=== PATIENT | female | born 1975 | race Caucasian/White ===

== ENCOUNTER → 2020-04-29 14:39 | Outpatient (CLI) | payer OTHER, MEDICAID, SELFPAY ==
--- NOTE | 2020-04-29 14:42 | DI.CT.S_ITS ---
PROCEDURE: CT SINUS SCREEN WO CON INDICATIONS: Chronic pansinusitis TECHNIQUE: Noncontrast 3.0 mm axial images acquired from the frontal sinuses to the mid-sella, with coronal and sagittal reformats. For radiation dose reduction, the following was used: automated exposure control, adjustment of mA and/or kV according to patient size. COMPARISON: None. FINDINGS: Image quality: There is artifact associated with the metallic hardware. Artifact from the metallic hardware is reduced by metal reconstruction algorithm. Maxillary Sinuses: No bony remodeling or destruction. Sinuses are clear. Ethmoid Air Cells: No bony remodeling or destruction. Sinuses are clear. Sphenoid Sinuses: No bony remodeling or destruction. Sinuses are clear. Frontal Sinuses: No bony remodeling or destruction. Sinuses are clear. Ostiomeatal Complexes: Ostiomeatal complexes are patent. No Doug cells. Miscellaneous: Visualized intra-orbital contents are normal. Bilateral stuart bullosa can be seen. There is mild leftward nasal septal deviation seen. IMPRESSION: No significant active paranasal sinus disease is seen. Bilateral stuart bullosa, with mild leftward nasal septal deviation noted. Dictated by: Roman Turcios M.D. on 04/29/2020 at 15:01 Approved by: Roman Turcios M.D. on 04/29/2020 at 15:03
== END ==
PROVIDERS: Family Provider Family Medicine; PCP Family Medicine; Referring Provider Family Medicine; Visit Provider Otolaryngology
DX: J32.4 Chronic pansinusitis (principal); R51.9 Headache, unspecified; J34.2 Deviated nasal septum; J34.3 Hypertrophy of nasal turbinates
CPT/HCPCS: 70486

== ENCOUNTER → 2020-08-26 11:32 | Outpatient (CLI) | payer OTHER, MEDICAID, SELFPAY ==
--- NOTE | 2020-08-26 11:35 | DI.RAD.S_ITS ---
PROCEDURE: XR ACUTE ABDOMEN SERIES INDICATIONS: ABD PAIN TECHNIQUE: One view chest and two views of the abdomen were acquired. COMPARISON: None. FINDINGS: Surgical changes and devices: None. Chest: Lungs are clear. Heart size is normal. No pleural effusions. No pneumoperitoneum. Abdomen: Bowel gas pattern is normal. No suspicious calcifications. Visualized solid organ contours appear normal. Bones: No suspicious bony lesions. IMPRESSION: 1. No evidence of bowel obstruction. No gross free air. No abnormal renal calcifications. 2. No acute cardiopulmonary pathology. Dictated by: Vaibhav Santana M.D. on 08/26/2020 at 13:05 Approved by: Vaibhav Santana M.D. on 08/26/2020 at 13:06
== END ==
PROVIDERS: Family Provider Family Medicine; PCP Family Medicine; Referring Provider Family Medicine; Visit Provider Family Medicine
DX: R10.9 Unspecified abdominal pain (principal)
CPT/HCPCS: 74022

== ENCOUNTER → 2021-04-08 09:14 | Outpatient (CLI) | payer OTHER, MEDICAID, SELFPAY ==
--- NOTE | 2021-04-08 | DI.RAD.S_ITS ---
PROCEDURE: XR HIP W PEL IF DONE RT 2V INDICATIONS: RIGHT HIP/ LOW BACK PAIN TECHNIQUE: AP pelvis with lateral view(s) of the right hip(s). COMPARISON: None. FINDINGS: Bones: No fractures or dislocations. Pelvic ring appears intact. No suspicious bony lesions. Mild bilateral hip osseous hypertrophy compatible with osteoarthritis.. Soft tissues: The visualized bowel gas pattern is normal. No suspicious soft tissue calcifications. IMPRESSION: Mild bilateral hip osteoarthritis. Dictated by: Erika Carmona MD, PhD on 04/08/2021 at 9:48 Approved by: Erika Carmona MD, PhD on 04/08/2021 at 9:48
--- NOTE | 2021-04-08 | DI.RAD.S_ITS ---
PROCEDURE: XR LUMBAR SPINE 2-3V INDICATIONS: RIGHT HIP/ LOW BACK PAIN TECHNIQUE: 3 views of the lumbar spine were acquired. COMPARISON: None. FINDINGS: Bones: 5 leg-yxr-jrtzftt vertebrae are present. No traumatic subluxation. No vertebral body compression fractures. No suspicious bony lesions. The sacroiliac joints are patent. Soft tissues: Overlying bowel gas pattern is normal. No suspicious soft tissue calcifications. IMPRESSION: No acute osseous abnormality. Dictated by: Subhash Perez M.D. on 04/08/2021 at 9:30 Approved by: Subhash Perez M.D. on 04/08/2021 at 9:31
== END ==
PROVIDERS: Family Provider Family Medicine; PCP Family Medicine; Referring Provider Family Medicine; Visit Provider Family Medicine
DX: M25.551 Pain in right hip (principal); M54.50 Low back pain, unspecified
CPT/HCPCS: 72100; 73502

== ENCOUNTER → 2022-12-31 17:45 | Outpatient (CLI) | payer OTHER, MEDICAID, SELFPAY | PROVIDERS: Family Provider Family Medicine; PCP Family Medicine; Visit Provider Physician Assistant | DX: J02.9 Acute pharyngitis, unspecified (principal) | CPT/HCPCS: 87070; 87880 ==

== ENCOUNTER 2023-01-12 14:15 | Outpatient (RCR) | payer OTHER, MEDICAID, SELFPAY ==
--- NOTE | 2022-12-08 18:16 | PT.OIE ---
Current Diagnoses Cervicalgia (12/08/22) Visit Care Team Role Provider Type Santos Chapin MD Attending Provider Physician Family Provider Primary Care Provider Referring Provider Specialty: Family Practice Address: [address] [place] [address], [facility], [place], [place], [facility] Email: [email or web address] Physical Therapy Initial Evaluation PT-OP-A Visit Information Start: 12/04/22 18:45 Freq: Status: Active Protocol: Document 12/08/22 11:21 LRN (Rec: 12/08/22 12:13 LRN [id number]) Out-Patient Physical Therapy Visit Information Visit Information Visit Type Initial Evaluation Visit Start Time 11:21 Visit Stop Time 12:08 Total Visit Minutes 47 Visit Number 07/14 Evaluation Information Evaluation Date 12/08/22 Precautions Precautions Jaw pain from clenching even with flare maker, dull tension headaches when body is hurting, upper back pain from neck. PT-OP-B Current Condition Start: 12/04/22 18:45 Freq: Status: Active Protocol: Document 12/08/22 11:21 LRN (Rec: 12/08/22 12:13 LRN [id number]) Current Condition History of Current Condition Onset Date 1.5 months ago. Current Complaints Pelon neck pain, can't rot or extend neck w/o sudden sharp pain,constant ache History of Current Condition Woke one day with neck pain that is variable in intensity. In mornings on day off it hurts more. Using gel ice pack helps. Was also better with ms relaxors and anti- inflammatories. Has achy muscles and sharp pain with rot and ext. 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 Prior Treatments and Tests Anti-inflammatories, muscle relaxors. Treatment Goals Patient/Caregiver Goals Pt goal: alleviate the sharp neck pain, to be able to turn neck all the way to drive. be able to play with grandkids , be able to get comfortable at nighttime, and no pain in morning except for achy neck muscles (currently wakes with pain rated 1-7/10). 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 Watches [employer] 2:30-5 :30 or 6p. Baseline Function- Other No back pain. Lives with 11 yo son and takes care of grandkids (ages 5,6,7, 2-boys and 1 girl) 2x/week. 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 PT-OP-C Subjective Start: 12/04/22 18:45 Freq: Status: Active Protocol: Document 12/08/22 11:21 LRN (Rec: 12/08/22 12:13 LRN [id number]) OP-PT Subjective Patient Comments Patient Comments If neck ms get tight, then can cause tingling in L shoulder. Patient Questionnaires Neck Disability Index NDI Score 14 Neck Disability Index Impairment 20 to 39% Impaired (Score 10- 19) Quick Dash- Upper Extremity Quick Dash UE Score 18 Quick Dash UE Impairment 1 to 19% Impaired (Score 1-19) OP-PT Pain Assessment Pain Assessment Grid Paper Pain Assessment Grid Completed Yes Location Neck Pain Location Details Posterior neck Intensity 7 Scale Used Numeric (0 - 10) Description Aching Description- Other Sharp pains with turning or looking up Frequency Constant Pain Aggravating Factors Changing Position Pain Alleviating Factors Cold,Heat,Medication Other Pain Alleviating Factors Gel ice packs PT-OP-H Neuro Start: 12/04/22 18:45 Freq: Status: Active Protocol: Document 12/08/22 11:21 LRN (Rec: 12/08/22 12:13 LRN [id number]) Sensation Evaluation Gross Sensation Gross Sensation WNL Deep Tendon Reflex & Clonus Assessment Deep Tendon Reflex Right Tricep Deep Tendon Reflex 1+ Diminished Left Tricep Deep Tendon Reflex 2+ Normal Right Bicep Deep Tendon Reflex 1+ Diminished Left Bicep Deep Tendon Reflex 2+ Normal Bilateral Brachioradialis Deep Tendon Reflex 2+ Normal PT-OP-J Posture/Palpation/Skin Start: 12/04/22 18:45 Freq: Status: Active Protocol: Document 12/08/22 11:21 LRN (Rec: 12/08/22 12:13 LRN [id number]) Posture Evaluation Position Standing Head/C-Spine Posture Side Bent Left,C-Spine Flattened,Forward Head L-Spine Posture Increased Lordosis Shoulder Posture (L) Elevated Arm Posture (L) Internally Rotated,(R) Internally Rotated Pelvis Posture Anteriorly Tilted Ankle/Foot Posture (L) Pronated,(R) Pronated Comments Posture Comments Straightened upper T/S, dowagers hump Palpation Assessment Location C/S Palpation Location C/S Palpation Findings Tenderness Palpation Details Decreased PA of C/S. Posterior neck Palpation Location L Paraspinals & UT Palpation Findings Soft Tissue Tightness,Muscle Guarding,Tenderness PT-OP-K Range of Motion Start: 12/04/22 18:45 Freq: Status: Active Protocol: Document 12/08/22 11:21 LRN (Rec: 12/08/22 12:13 LRN [id number]) Cervical Spine Range of Motion Cervical Spine Active Degrees Testing Position Sitting Flexion 38 Extension 24 Rotation Left 30 Rotation Right 42 Lateral Flexion Left 23 Lateral Flexion Right 23 ROM Limitations Pain Comments Pain at base of skull PT-OP-L Special Tests Start: 12/04/22 18:45 Freq: Status: Active Protocol: Document 12/08/22 11:21 LRN (Rec: 12/08/22 12:13 LRN [id number]) Special Tests Cervical Spine Special Tests Vertebral Artery Test Results - R rot, not able to tolerate positioning for testing of L side. Spurling's Test Test Results + Comments L sided neck pain Traction Test Results + Comments Relieved tension Foraminal Compression Test Results + Comments Increased pain at base of head PT-OP-M Strength Start: 12/04/22 18:45 Freq: Status: Active Protocol: Document 12/08/22 11:21 LRN (Rec: 12/08/22 12:13 LRN [id number]) Cervical Spine Strength Cervical Spine Manual Muscle Testing Testing Position Sitting Flexion (C1-2) 4 Good Extension 5 Normal Rotation Left 5 Normal Rotation Right 5 Normal Lateral Flexion Left (C3) 3+ Fair+ Lateral Flexion Right (C3) 5 Normal Comments Pain with Flex and L SB Dec pain with Ext PT-OP-Q Treatments Start: 12/04/22 18:45 Freq: Status: Active Protocol: Document 12/08/22 11:21 LRN (Rec: 12/08/22 12:13 LRN [id number]) Self-Care/Home Management Treatment Education Patient Education Home Exercise Program Other Education Discussed results of evaluation, goals, and plan of care (POC). Pt agreeable to goals and POC. Educated and discussed proper head positioning for sleeping. Activities Self-Care/Home Management Activities I/S pt in HEP: Supine or sitting active neck ext ( sitting hands behind neck), SB and rot stretch. Pt to check her pillow support and make so head is in neutral. Requested pt to try limiting lifting while at work as able. PT-OP-T Assessment and Plan Start: 12/04/22 18:45 Freq: Status: Active Protocol: Document 12/08/22 11:21 LRN (Rec: 12/08/22 12:13 LRN [id number]) Physical Therapy Assessment Rehab Potential Rehabilitation Potential Good Evaluation Complexity Number of Personal Factors/Comorbidities 3 or More Number of Body Systems Impaired 4 or More Clinical Presentation at Evaluation Evolving Impairments Impairments Activity Tolerance,Pain, Posture,ROM,Soft Tissue Mobility,Strength Goals Two Impairment Neck pain limiting function Impairment Decrease driving and sleeping ability. Pain first in morning (pain rated 1-7/10). NDI score 14/50 (20-39% impaired, score 10-19), UE Quickdash 18 (1-19% impaired, score 1-19). Short Term Goal (STG) Alleviate the sharp neck pain, to drive to turn neck all the way. STG Duration 01/17/23 Sustainability Coordinator Goal (LTG) Be able to get comfortable at nighttime, no pain first in morning except for achy neck muscles (wakes with pain rated 1-7/10). Be able to play with grandkids. LTG Duration 03/08/23 One Impairment Lacks HEP Short Term Goal (STG) Pt will be educated in proper posture, nighttime positioning and body mechanics. STG Duration 01/17/23 Sustainability Coordinator Goal (LTG) Pt will be independent in a self prison ex program of cervical mobility and strengthening exercises. LTG Duration 03/08/23 Assessment Summary Assessment Pt is a 47 yo female who presents with soft tissue and mechanical dysfunction of the cervical spine. Her neck appears to be straightened and she has soft tissue tightness of the bilateral cervical paraspinal muscles (L>R) and in the L upper shoulder. The pt also demonstrates postural changes of the upper back/low back with decreased cervical mobility and probably thoracic mobility. She appears to have decreased response to biceps DTR (C5-C6). Provocation tests indicate possible neural involvement that may be more associated to joint dysfunction. Ongoing assessment will be needed as her soft tissue dysfunction is resolved and joint mechanics improved to determine neural invovlement. The pt will benefit from skilled physical therapy to work towards achieving the above stated goals. Physical Therapy Plan Frequency and Duration Frequency of Treatment 2x/Week Plan of Care Start Date 12/08/22 Plan of Care End Date 03/08/23 Therapeutic Interventions Therapeutic Interventions Home Exercise Program,Joint Mobilizations,Manual Therapy, Neuromuscular Re-education, Patient/Caregiver Education, Self-Care/Home Management,Soft Tissue Mobilization,Taping, Therapeutic Activities, Therapeutic Exercises Modalities Cold Pack/Ice Massage,Electric Stimulation,Hot Packs, Traction- Mechanical, Ultrasound Next Visit Focus/Plan Next Note Type Treatment Note Next Visit Plan Review I/S HEP. Assess Upper limb tension and assess shoulder mobility for pain involvement. POC: Modalities (MH, CP, ESTIM, US) and manual therapy (Traction, JMT, STM) to decrease ms guarding. Ther Ex: Improve cervical extension, and rotation (L>R) ROM. Ther Ex: Cervical stab strengthening, posture. Pt education in best sleeping positions and body mechanics training for proper head/neck posturing. Discuss daily head positioning to avoid flexion.
--- NOTE | 2022-12-08 18:16 | PT.OPPOC ---
Physical, Occupational & Speech Therapy At [facility] Current Diagnoses Cervicalgia (12/08/22) Visit Care Team Role Provider Type Santos Chapin MD Attending Provider Physician Family Provider Primary Care Provider Referring Provider Specialty: Family Practice Address: [address] [place] [address], [id number] Email: [email or web address] Plan Of Care PT-OP-T Assessment and Plan Start: 12/04/22 18:45 Freq: Status: Active Protocol: Document 12/08/22 11:21 LRN (Rec: 12/08/22 12:13 LRN [id number]) Physical Therapy Assessment Rehab Potential Rehabilitation Potential Good Evaluation Complexity Number of Personal Factors/Comorbidities 3 or More Number of Body Systems Impaired 4 or More Clinical Presentation at Evaluation Evolving Impairments Impairments Activity Tolerance,Pain, Posture,ROM,Soft Tissue Mobility,Strength Goals Two Impairment Neck pain limiting function Impairment Decrease driving and sleeping ability. Pain first in morning (pain rated 1-7/10). NDI score 14/50 (20-39% impaired, score 10-19), UE Quickdash 18 (1-19% impaired, score 1-19). Short Term Goal (STG) Alleviate the sharp neck pain, to drive to turn neck all the way. STG Duration 01/17/23 Spring Maker Goal (LTG) Be able to get comfortable at nighttime, no pain first in morning except for achy neck muscles (wakes with pain rated 1-7/10). Be able to play with grandkids. LTG Duration 03/08/23 One Impairment Lacks HEP Short Term Goal (STG) Pt will be educated in proper posture, nighttime positioning and body mechanics. STG Duration 01/17/23 [facility] Goal (LTG) Pt will be independent in a self fdc ex program of cervical mobility and strengthening exercises. LTG Duration 03/08/23 Assessment Summary Assessment Pt is a 47 yo female who presents with soft tissue and mechanical dysfunction of the cervical spine. Her neck appears to be straightened and she has soft tissue tightness of the bilateral cervical paraspinal muscles (L>R) and in the L upper shoulder. The pt also demonstrates postural changes of the upper back/low back with decreased cervical mobility and probably thoracic mobility. She appears to have decreased response to biceps DTR (C5-C6). Provocation tests indicate possible neural involvement that may be more associated to joint dysfunction. Ongoing assessment will be needed as her soft tissue dysfunction is resolved and joint mechanics improved to determine neural invovlement. The pt will benefit from skilled physical therapy to work towards achieving the above stated goals. Physical Therapy Plan Frequency and Duration Frequency of Treatment 2x/Week Plan of Care Start Date 12/08/22 Plan of Care End Date 03/08/23 Therapeutic Interventions Therapeutic Interventions Home Exercise Program,Joint Mobilizations,Manual Therapy, Neuromuscular Re-education, Patient/Caregiver Education, Self-Care/Home Management,Soft Tissue Mobilization,Taping, Therapeutic Activities, Therapeutic Exercises Modalities Cold Pack/Ice Massage,Electric Stimulation,Hot Packs, Traction- Mechanical, Ultrasound Next Visit Focus/Plan Next Note Type Treatment Note Next Visit Plan Review I/S HEP. Assess Upper limb tension and assess shoulder mobility for pain involvement. POC: Modalities (MH, CP, ESTIM, US) and manual therapy (Traction, JMT, STM) to decrease ms guarding. Ther Ex: Improve cervical extension, and rotation (L>R) ROM. Ther Ex: Cervical stab strengthening, posture. Pt education in best sleeping positions and body mechanics training for proper head/neck posturing. Discuss daily head positioning to avoid flexion. Plan of Care Dates Plan of Care Start Date 12/08/22 Plan of Care End Date 03/08/23 Electronically Signed by: Sisi Meyers, PT 12/08/22 [id number] If you are in agreement with this Plan of Care, please return a signed and dated copy. I have reviewed this Plan of Care and certify that the skilled therapy services above are required to meet the patient?s needs. Physician Signature Date Printed Name and Credentials Clinical Instructor Signature Printed Name and Credentials
--- NOTE | 2022-12-11 08:44 | PT.OTN ---
Current Diagnoses Cervicalgia (12/11/22) Physical Therapy Treatment Note PT-OP-A Visit Information Start: 12/04/22 18:45 Freq: Status: Active Protocol: Document 12/11/22 08:03 LRN (Rec: 12/11/22 08:41 LRN [id number]) Out-Patient Physical Therapy Visit Information Visit Information Visit Type Treatment Note Visit Start Time 08:03 Visit Stop Time 08:44 Total Visit Minutes 41 Visit Number 2 Evaluation Information Evaluation Date 12/08/22 Precautions Precautions Jaw pain from clenching even with night monitor, dull tension headaches when body is hurting, upper back pain from neck. PT-OP-B Current Condition Start: 12/04/22 18:45 Freq: Status: Active Protocol: Document 12/08/22 11:21 LRN (Rec: 12/08/22 12:13 LRN [id number]) Current Condition History of Current Condition Onset Date 1.5 months ago. Current Complaints Pelon neck pain, can't rot or extend neck w/o sudden sharp pain,constant ache History of Current Condition Woke one day with neck pain that is variable in intensity. In mornings on day off it hurts more. Using gel ice pack helps. Was also better with ms relaxors and anti- inflammatories. Has achy muscles and sharp pain with rot and ext. 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 Prior Treatments and Tests Anti-inflammatories, muscle relaxors. Treatment Goals Patient/Caregiver Goals Pt goal: alleviate the sharp neck pain, to be able to turn neck all the way to drive. be able to play with grandkids , be able to get comfortable at nighttime, and no pain in morning except for achy neck muscles (currently wakes with pain rated 1-7/10). 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 Watches [employer] 2:30-5 :30 or 6p. Baseline Function- Other No back pain. Lives with 11 yo son and takes care of grandkids (ages 5,6,7, 2-boys and 1 girl) 2x/week. 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 PT-OP-C Subjective Start: 12/04/22 18:45 Freq: Status: Active Protocol: Document 12/11/22 08:03 LRN (Rec: 12/11/22 08:41 LRN [id number]) OP-PT Subjective Patient Comments Patient Comments Same. L side hurts more today. Pain on L side is 3/10 . Tends to alternate in the muscle that is painful. Has been sleeping with only one pillow. PT-OP-H Neuro Start: 12/04/22 18:45 Freq: Status: Active Protocol: Document 12/08/22 11:21 LRN (Rec: 12/08/22 12:13 LRN [id number]) Sensation Evaluation Gross Sensation Gross Sensation WNL Deep Tendon Reflex & Clonus Assessment Deep Tendon Reflex Right Tricep Deep Tendon Reflex 1+ Diminished Left Tricep Deep Tendon Reflex 2+ Normal Right Bicep Deep Tendon Reflex 1+ Diminished Left Bicep Deep Tendon Reflex 2+ Normal Bilateral Brachioradialis Deep Tendon Reflex 2+ Normal PT-OP-J Posture/Palpation/Skin Start: 12/04/22 18:45 Freq: Status: Active Protocol: Document 12/08/22 11:21 LRN (Rec: 12/08/22 12:13 LRN [id number]) Posture Evaluation Position Standing Head/C-Spine Posture Side Bent Left,C-Spine Flattened,Forward Head L-Spine Posture Increased Lordosis Shoulder Posture (L) Elevated Arm Posture (L) Internally Rotated,(R) Internally Rotated Pelvis Posture Anteriorly Tilted Ankle/Foot Posture (L) Pronated,(R) Pronated Comments Posture Comments Straightened upper T/S, dowagers hump Palpation Assessment Location C/S Palpation Location C/S Palpation Findings Tenderness Palpation Details Decreased PA of C/S. Posterior neck Palpation Location L Paraspinals & UT Palpation Findings Soft Tissue Tightness,Muscle Guarding,Tenderness PT-OP-K Range of Motion Start: 12/04/22 18:45 Freq: Status: Active Protocol: Document 12/08/22 11:21 LRN (Rec: 12/08/22 12:13 LRN [id number]) Cervical Spine Range of Motion Cervical Spine Active Degrees Testing Position Sitting Flexion 38 Extension 24 Rotation Left 30 Rotation Right 42 Lateral Flexion Left 23 Lateral Flexion Right 23 ROM Limitations Pain Comments Pain at base of skull PT-OP-L Special Tests Start: 12/04/22 18:45 Freq: Status: Active Protocol: Document 12/08/22 11:21 LRN (Rec: 12/08/22 12:13 LRN [id number]) Special Tests Cervical Spine Special Tests Vertebral Artery Test Results - R rot, not able to tolerate positioning for testing of L side. Spurling's Test Test Results + Comments L sided neck pain Traction Test Results + Comments Relieved tension Foraminal Compression Test Results + Comments Increased pain at base of head PT-OP-M Strength Start: 12/04/22 18:45 Freq: Status: Active Protocol: Document 12/08/22 11:21 LRN (Rec: 12/08/22 12:13 LRN [id number]) Cervical Spine Strength Cervical Spine Manual Muscle Testing Testing Position Sitting Flexion (C1-2) 4 Good Extension 5 Normal Rotation Left 5 Normal Rotation Right 5 Normal Lateral Flexion Left (C3) 3+ Fair+ Lateral Flexion Right (C3) 5 Normal Comments Pain with Flex and L SB Dec pain with Ext PT-OP-Q Treatments Start: 12/04/22 18:45 Freq: Status: Active Protocol: Document 12/11/22 08:03 LRN (Rec: 12/11/22 08:41 LRN [id number]) Therapeutic Exercises Sitting Exercises Neck stretches Sitting Exercise Name EXt (hands behind neck), SB, Rot Side bilateral Reps/Minutes 3 SH x 10 for ext, 5 SH x 10 for SB/Rot Comments Extra time taken to review ex & w/pictures, & to determine max lida stretch Self-Care/Home Management Treatment Activities Self-Care/Home Management Activities Issued & reviewed HEP: Supine or sitting active neck ext ( sitting hands behind neck), SB and rot stretch. PT-OP-R Modalities Start: 12/04/22 18:45 Freq: Status: Active Protocol: Document 12/11/22 08:03 LRN (Rec: 12/11/22 08:41 LRN [id number]) Electric Stimulation Electric Stimulation Interferential Current (IFC) Body Location Neck/midback Duration (Minutes) 10 Intensity 8 Target/Sweep Sweep Patient Position Hooklying Combined With Heat/Cold Hot Pack PT-OP-T Assessment and Plan Start: 12/04/22 18:45 Freq: Status: Active Protocol: Document 12/11/22 08:03 LRN (Rec: 12/11/22 08:41 LRN [id number]) Physical Therapy Assessment Goals Two Impairment Neck pain limiting function Impairment Decrease driving and sleeping ability. Pain first in morning (pain rated 1-7/10). NDI score 14/50 (20-39% impaired, score 10-19), UE Quickdash 18 (1-19% impaired, score 1-19). Short Term Goal (STG) Alleviate the sharp neck pain, to drive to turn neck all the way. STG Duration 01/17/23 Director Of Software Development Goal (LTG) Be able to get comfortable at nighttime, no pain first in morning except for achy neck muscles (wakes with pain rated 1-7/10). Be able to play with grandkids. LTG Duration 03/08/23 One Impairment Lacks HEP Short Term Goal (STG) Pt will be educated in proper posture, nighttime positioning and body mechanics. STG Duration 01/17/23 Skilled Nursing Goal (LTG) Pt will be independent in a self retirement ex program of cervical mobility and strengthening exercises. 12/11/22: HEP: Cervical ext, SB, rot stretches. LTG Duration 03/08/23 progressed 12/11/22 Assessment Summary Assessment Pt appears to have a good understanding of HEP issued and is able to work within ex tolerance. Pt had + response to MH/ES, with relaxation of muscles. Physical Therapy Plan Frequency and Duration Frequency of Treatment 2x/Week Plan of Care Start Date 12/08/22 Plan of Care End Date 03/08/23 Next Visit Focus/Plan Next Note Type Treatment Note Next Visit Plan Review issued HEP if needed. Assess Upper limb tension and assess shoulder mobility for pain involvement. Start Cervical stab strengthening, posture. End: Modalities (MH, CP, ESTIM) next: try pads at neck> UT, manual therapy (Traction, JMT, STM) to decrease ms guarding. Ther Ex: Improve cervical extension, and rotation (L>R) ROM. Pt education in best sleeping positions and body mechanics training for proper head/neck posturing. Discuss daily head positioning to avoid flexion.
--- NOTE | 2022-12-14 16:14 | PT.OTN ---
Current Diagnoses Cervicalgia (12/14/22) Physical Therapy Treatment Note PT-OP-A Visit Information Start: 12/04/22 18:45 Freq: Status: Active Protocol: Document 12/14/22 14:19 NBM (Rec: 12/14/22 16:11 NBM [id number]) Out-Patient Physical Therapy Visit Information Visit Information Visit Type Treatment Note Visit Start Time 14:19 Visit Stop Time 15:05 Total Visit Minutes 46 Visit Number 09/11 Number of DIRECTOR OF RESPIRATORY THERAPY Visits 1 PT-OP-B Current Condition Start: 12/04/22 18:45 Freq: Status: Active Protocol: Document 12/08/22 11:21 LRN (Rec: 12/08/22 12:13 LRN [id number]) Current Condition History of Current Condition Onset Date 1.5 months ago. Current Complaints Pelon neck pain, can't rot or extend neck w/o sudden sharp pain,constant ache History of Current Condition Woke one day with neck pain that is variable in intensity. In mornings on day off it hurts more. Using gel ice pack helps. Was also better with ms relaxors and anti- inflammatories. Has achy muscles and sharp pain with rot and ext. 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 Prior Treatments and Tests Anti-inflammatories, muscle relaxors. Treatment Goals Patient/Caregiver Goals Pt goal: alleviate the sharp neck pain, to be able to turn neck all the way to drive. be able to play with grandkids , be able to get comfortable at nighttime, and no pain in morning except for achy neck muscles (currently wakes with pain rated 1-7/10). 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 Watches [employer] 2:30-5 :30 or 6p. Baseline Function- Other No back pain. Lives with 11 yo son and takes care of grandkids (ages 5,6,7, 2-boys and 1 girl) 2x/week. 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 PT-OP-C Subjective Start: 12/04/22 18:45 Freq: Status: Active Protocol: Document 12/14/22 14:19 NBM (Rec: 12/14/22 16:11 NBM [id number]) OP-PT Subjective Patient Comments Patient Comments Pt reports the machine with pulses and heat was very helpful. She thinks she was doing the stretching wrong because she wasn't holding it 5-10s. The ex where she lies down and turns her head side to side hurts. Here pain jumps from side to side. She's using one pillow shaped to keep her neck neutral but she wakes up and moves. PT-OP-H Neuro Start: 12/04/22 18:45 Freq: Status: Active Protocol: Document 12/08/22 11:21 LRN (Rec: 12/08/22 12:13 LRN [id number]) Sensation Evaluation Gross Sensation Gross Sensation WNL Deep Tendon Reflex & Clonus Assessment Deep Tendon Reflex Right Tricep Deep Tendon Reflex 1+ Diminished Left Tricep Deep Tendon Reflex 2+ Normal Right Bicep Deep Tendon Reflex 1+ Diminished Left Bicep Deep Tendon Reflex 2+ Normal Bilateral Brachioradialis Deep Tendon Reflex 2+ Normal PT-OP-J Posture/Palpation/Skin Start: 12/04/22 18:45 Freq: Status: Active Protocol: Document 12/08/22 11:21 LRN (Rec: 12/08/22 12:13 LRN [id number]) Posture Evaluation Position Standing Head/C-Spine Posture Side Bent Left,C-Spine Flattened,Forward Head L-Spine Posture Increased Lordosis Shoulder Posture (L) Elevated Arm Posture (L) Internally Rotated,(R) Internally Rotated Pelvis Posture Anteriorly Tilted Ankle/Foot Posture (L) Pronated,(R) Pronated Comments Posture Comments Straightened upper T/S, dowagers hump Palpation Assessment Location C/S Palpation Location C/S Palpation Findings Tenderness Palpation Details Decreased PA of C/S. Posterior neck Palpation Location L Paraspinals & UT Palpation Findings Soft Tissue Tightness,Muscle Guarding,Tenderness PT-OP-K Range of Motion Start: 12/04/22 18:45 Freq: Status: Active Protocol: Document 12/08/22 11:21 LRN (Rec: 12/08/22 12:13 LRN [id number]) Cervical Spine Range of Motion Cervical Spine Active Degrees Testing Position Sitting Flexion 38 Extension 24 Rotation Left 30 Rotation Right 42 Lateral Flexion Left 23 Lateral Flexion Right 23 ROM Limitations Pain Comments Pain at base of skull PT-OP-L Special Tests Start: 12/04/22 18:45 Freq: Status: Active Protocol: Document 12/08/22 11:21 LRN (Rec: 12/08/22 12:13 LRN [id number]) Special Tests Cervical Spine Special Tests Vertebral Artery Test Results - R rot, not able to tolerate positioning for testing of L side. Spurling's Test Test Results + Comments L sided neck pain Traction Test Results + Comments Relieved tension Foraminal Compression Test Results + Comments Increased pain at base of head PT-OP-M Strength Start: 12/04/22 18:45 Freq: Status: Active Protocol: Document 12/08/22 11:21 LRN (Rec: 12/08/22 12:13 LRN [id number]) Cervical Spine Strength Cervical Spine Manual Muscle Testing Testing Position Sitting Flexion (C1-2) 4 Good Extension 5 Normal Rotation Left 5 Normal Rotation Right 5 Normal Lateral Flexion Left (C3) 3+ Fair+ Lateral Flexion Right (C3) 5 Normal Comments Pain with Flex and L SB Dec pain with Ext PT-OP-Q Treatments Start: 12/04/22 18:45 Freq: Status: Active Protocol: Document 12/14/22 14:19 NBM (Rec: 12/14/22 16:11 NBM [id number]) Therapeutic Exercises Supine Exercises chin tucks Supine Exercise Name added to HEP - no HO given Reps/Minutes 5-10 second hold Active cervical rotation Supine Exercise Name HEP review - verbal review Side bilateral Comments cues for chin tucks and gentle pain-free range Sitting Exercises Neck stretches Sitting Exercise Name Ext (hands behind neck), SB, Rot Side bilateral Reps/Minutes 3 SH x 10 for ext, 5 SH x 10 for SB/Rot Comments Extra time taken to review ex, cues for pain-free range and chin tuck Manual Therapy Treatment Soft Tissue Mobilization cervical Body Location R>L Scalenes, LS, UT, SO release Mobilization Type Rolling,Strumming,Sustained Pressure Intensity/Depth Moderate Body Position Hooklying Comments w/ diaphragmatic breathing. Manual cervical trx - 2 x 90s - positive feedback response Self-Care/Home Management Treatment Education Patient Education Home Exercise Program Other Education -Discussed daily head positioning to avoid flexion. -Review of 12/11/22 HEP. Added to HEP supine Chin tucks; standing shoulder IR towel stretch - no HO given. -Pt educated in diaphragmatic breathing in hooklying to improve muscle tension and breathholding. PT-OP-R Modalities Start: 12/04/22 18:45 Freq: Status: Active Protocol: Document 12/14/22 14:19 NBM (Rec: 12/14/22 16:11 NBM [id number]) Electric Stimulation Electric Stimulation Interferential Current (IFC) Body Location Neck/midback Duration (Minutes) 10 Intensity 10 Target/Sweep Sweep Patient Position Hooklying Combined With Heat/Cold Hot Pack PT-OP-T Assessment and Plan Start: 12/04/22 18:45 Freq: Status: Active Protocol: Document 12/14/22 14:19 NBM (Rec: 12/14/22 16:11 [facility] [id number]) Physical Therapy Assessment Impairments Impairments Activity Tolerance,Pain, Posture,ROM,Soft Tissue Mobility,Strength Goals Two Impairment Neck pain limiting function Impairment Decrease driving and sleeping ability. Pain first in morning (pain rated 1-7/10). NDI score 14/50 (20-39% impaired, score 10-19), UE Quickdash 18 (1-19% impaired, score 1-19). Short Term Goal (STG) Alleviate the sharp neck pain, to drive to turn neck all the way. 12/14/22: Discussed daily head positioning to avoid flexion. STG Duration 01/17/23 Geological Technician Goal (LTG) Be able to get comfortable at nighttime, no pain first in morning except for achy neck muscles (wakes with pain rated 1-7/10). Be able to play with grandkids. LTG Duration 03/08/23 One Impairment Lacks HEP Short Term Goal (STG) Pt will be educated in proper posture, nighttime positioning and body mechanics. STG Duration 01/17/23 Geological Technician Goal (LTG) Pt will be independent in a self shelter ex program of cervical mobility and strengthening exercises. 12/11/22: HEP: Cervical ext, SB, rot stretches. 12/14/22: 12/11/22 HEP review; HEP: supine Chin tuck, standing shoulder IR towel stretch LTG Duration 03/08/23 progressed 12/11/22 Assessment Summary Assessment Treatment focus on HEP review and posture. Pt requires consistent cues for chin tuck with cervical stretches and shows improved self-awareness with repetition and cueing. Added supine chin tucks and standing shoulder IR towel stretch to HEP - no HO given. Palpable tightness to R Levator scapula improves with manual therapy. Discussed w/ pt daily head positioning to avoid flexion and improve forward head posture. Pt is educated in diaphragmatic breathing in hooklying to improve muscle tension and breathholding. Physical Therapy Plan Frequency and Duration Frequency of Treatment 2x/Week Plan of Care Start Date 12/08/22 Plan of Care End Date 03/08/23 Therapeutic Interventions Therapeutic Interventions Home Exercise Program,Joint Mobilizations,Manual Therapy, Neuromuscular Re-education, Patient/Caregiver Education, Self-Care/Home Management,Soft Tissue Mobilization,Taping, Therapeutic Activities, Therapeutic Exercises Modalities Cold Pack/Ice Massage,Electric Stimulation,Hot Packs, Traction- Mechanical, Ultrasound Next Visit Focus/Plan Next Note Type Treatment Note Next Visit Plan Review supine active cervical rotation new HEP (chin tucks, shoulder IR towel stretch -HO if needed). Review issued HEP if needed. Assess Upper limb tension and assess shoulder mobility for pain involvement. Start Cervical stab strengthening, posture. End: Modalities (MH, CP, ESTIM) next: try pads at neck> UT, manual therapy (Traction, JMT, STM) to decrease ms guarding. Ther Ex: Improve cervical extension, and rotation (L>R) ROM. Pt education in best sleeping positions and body mechanics training for proper head/neck posturing.
--- NOTE | 2022-12-21 17:32 | PT.OTN ---
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 PT-OP-B Current Condition Start: 12/04/22 18:45 Freq: Status: Active Protocol: Document 12/08/22 11:21 LRN (Rec: 12/08/22 12:13 LRN [id number]) Current Condition History of Current Condition Onset Date 1.5 months ago. Current Complaints Pelon neck pain, can't rot or extend neck w/o sudden sharp pain,constant ache History of Current Condition Woke one day with neck pain that is variable in intensity. In mornings on day off it hurts more. Using gel ice pack helps. Was also better with ms relaxors and anti- inflammatories. Has achy muscles and sharp pain with rot and ext. 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 Prior Treatments and Tests Anti-inflammatories, muscle relaxors. Treatment Goals Patient/Caregiver Goals Pt goal: alleviate the sharp neck pain, to be able to turn neck all the way to drive. be able to play with grandkids , be able to get comfortable at nighttime, and no pain in morning except for achy neck muscles (currently wakes with pain rated 1-7/10). 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 Watches [employer] 2:30-5 :30 or 6p. Baseline Function- Other No back pain. Lives with 11 yo son and takes care of grandkids (ages 5,6,7, 2-boys and 1 girl) 2x/week. 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 PT-OP-C Subjective Start: 12/04/22 18:45 Freq: Status: Active Protocol: Document 12/21/22 16:00 NBM (Rec: 12/21/22 17:19 NBM [id number]) OP-PT Subjective Patient Comments Patient Comments Mirta reports her pain is decreasing and she can move her neck more. She felt a good pop in the right side of her neck today. Checking her blind spot is improving. She felt good after her last visit. HEP compliant. Patient Reported Progress Improving PT-OP-H Neuro Start: 12/04/22 18:45 Freq: Status: Active Protocol: Document 12/08/22 11:21 LRN (Rec: 12/08/22 12:13 LRN [id number]) Sensation Evaluation Gross Sensation Gross Sensation WNL Deep Tendon Reflex & Clonus Assessment Deep Tendon Reflex Right Tricep Deep Tendon Reflex 1+ Diminished Left Tricep Deep Tendon Reflex 2+ Normal Right Bicep Deep Tendon Reflex 1+ Diminished Left Bicep Deep Tendon Reflex 2+ Normal Bilateral Brachioradialis Deep Tendon Reflex 2+ Normal PT-OP-J Posture/Palpation/Skin Start: 12/04/22 18:45 Freq: Status: Active Protocol: Document 12/08/22 11:21 LRN (Rec: 12/08/22 12:13 LRN [id number]) Posture Evaluation Position Standing Head/C-Spine Posture Side Bent Left,C-Spine Flattened,Forward Head L-Spine Posture Increased Lordosis Shoulder Posture (L) Elevated Arm Posture (L) Internally Rotated,(R) Internally Rotated Pelvis Posture Anteriorly Tilted Ankle/Foot Posture (L) Pronated,(R) Pronated Comments Posture Comments Straightened upper T/S, dowagers hump Palpation Assessment Location C/S Palpation Location C/S Palpation Findings Tenderness Palpation Details Decreased PA of C/S. Posterior neck Palpation Location L Paraspinals & UT Palpation Findings Soft Tissue Tightness,Muscle Guarding,Tenderness PT-OP-K Range of Motion Start: 12/04/22 18:45 Freq: Status: Active Protocol: Document 12/08/22 11:21 LRN (Rec: 12/08/22 12:13 LRN [id number]) Cervical Spine Range of Motion Cervical Spine Active Degrees Testing Position Sitting Flexion 38 Extension 24 Rotation Left 30 Rotation Right 42 Lateral Flexion Left 23 Lateral Flexion Right 23 ROM Limitations Pain Comments Pain at base of skull PT-OP-L Special Tests Start: 12/04/22 18:45 Freq: Status: Active Protocol: Document 12/08/22 11:21 LRN (Rec: 12/08/22 12:13 LRN [id number]) Special Tests Cervical Spine Special Tests Vertebral Artery Test Results - R rot, not able to tolerate positioning for testing of L side. Spurling's Test Test Results + Comments L sided neck pain Traction Test Results + Comments Relieved tension Foraminal Compression Test Results + Comments Increased pain at base of head PT-OP-M Strength Start: 12/04/22 18:45 Freq: Status: Active Protocol: Document 12/08/22 11:21 LRN (Rec: 12/08/22 12:13 LRN [id number]) Cervical Spine Strength Cervical Spine Manual Muscle Testing Testing Position Sitting Flexion (C1-2) 4 Good Extension 5 Normal Rotation Left 5 Normal Rotation Right 5 Normal Lateral Flexion Left (C3) 3+ Fair+ Lateral Flexion Right (C3) 5 Normal Comments Pain with Flex and L SB Dec pain with Ext PT-OP-Q Treatments Start: 12/04/22 18:45 Freq: Status: Active Protocol: Document 12/21/22 16:00 NB (Rec: 12/21/22 17:19 NB [id number]) Therapeutic Exercises Supine Exercises chin tucks Supine Exercise Name HEP review- HO given today Reps/Minutes 5-10 second hold Active cervical rotation Side bilateral Reps/Minutes 10 x5SH Comments pt c/o of R neck discomfort with L>R rot Sitting Exercises Levator scap stretch Side bilateral Reps/Minutes 2 x30s ea Neck stretches Sitting Exercise Name Ext (hands behind neck), SB, Rot Side bilateral Reps/Minutes 3 SH x 10 for ext, 5 SH x 10 for SB/Rot Comments vc to sit on shoulder, keep nose ahead for SB Standing Exercises wall posture Standing Exercise Name added to HEP Equipment Used wall Reps/Minutes 5 x 5 second hold Comments good carryover off wall Manual Therapy Treatment Soft Tissue Mobilization cervical Body Location R>L Scalenes, R SCM, Pelon LS, UT Mobilization Type Rolling,Strumming,Sustained Pressure Intensity/Depth Moderate Body Position Hooklying Comments Manual cervical trx - 3 x 90s Manual pin and stretch to LS bilaterally Self-Care/Home Management Treatment Education Patient Education Home Exercise Program Other Education HEP reviewed. Pt educated standing posture. Wall posture and supine chin tucks HO given for HEP. PT-OP-R Modalities Start: 12/04/22 18:45 Freq: Status: Active Protocol: Document 12/21/22 16:00 NBM (Rec: 12/21/22 17:19 NB [id number]) Electric Stimulation Electric Stimulation Interferential Current (IFC) Body Location Neck/midback Duration (Minutes) 10 Intensity 18 Target/Sweep Sweep Patient Position Hooklying Combined With Heat/Cold Hot Pack PT-OP-T Assessment and Plan Start: 12/04/22 18:45 Freq: Status: Active Protocol: Document 12/21/22 16:00 NBM (Rec: 12/21/22 17:19 NB [id number]) Physical Therapy Assessment Impairments Impairments Activity Tolerance,Pain, Posture,ROM,Soft Tissue Mobility,Strength Goals Two Impairment Neck pain limiting function Impairment Decrease driving and sleeping ability. Pain first in morning (pain rated 1-7/10). NDI score 14/50 (20-39% impaired, score 10-19), UE Quickdash 18 (1-19% impaired, score 1-19). Short Term Goal (STG) Alleviate the sharp neck pain, to drive to turn neck all the way. 12/14/22: Discussed daily head positioning to avoid flexion. STG Duration 01/17/23 Fpc Goal (LTG) Be able to get comfortable at nighttime, no pain first in morning except for achy neck muscles (wakes with pain rated 1-7/10). Be able to play with grandkids. LTG Duration 03/08/23 One Impairment Lacks HEP Short Term Goal (STG) Pt will be educated in proper posture, nighttime positioning and body mechanics. STG Duration 01/17/23 Circulation Crew Leader Goal (LTG) Pt will be independent in a self [facility] ex program of cervical mobility and strengthening exercises. 12/11/22: HEP: Cervical ext, SB, rot stretches. 12/14/22: 12/11/22 HEP review; HEP: supine Chin tuck, standing shoulder IR towel stretch 12/21/22: Wall posture and supine chin tucks HO given for HEP. LTG Duration 03/08/23 progressed 12/11/22 Assessment Summary Assessment Mirta presents today with visibly improving cervical rotation bilaterally and reporting decreasing pain overall. She demonstrates good postural carryover from wall posture ex. She requires cues for form with scalene stretches, and for keeping nose straight ahead with cervical sidebending stretching - her self- awareness improves with cues and repetition. Pt reports L>R -sided cervical pain w/ supine cervical AROM ex and there is palpable tightness to R paraspinals which improves with manual therapy. Wall posture and supine chin tucks HO given for HEP. Physical Therapy Plan Frequency and Duration Frequency of Treatment 2x/Week Plan of Care Start Date 12/08/22 Plan of Care End Date 03/08/23 Therapeutic Interventions Therapeutic Interventions Home Exercise Program,Joint Mobilizations,Manual Therapy, Neuromuscular Re-education, Patient/Caregiver Education, Self-Care/Home Management,Soft Tissue Mobilization,Taping, Therapeutic Activities, Therapeutic Exercises Modalities Cold Pack/Ice Massage,Electric Stimulation,Hot Packs, Traction- Mechanical, Ultrasound Next Visit Focus/Plan Next Note Type Treatment Note Next Visit Plan Review HEP (shoulder IR towel stretch, wall posture, AROM cervical rotation if needed). Give Posture HOs. Assess Upper limb tension and assess shoulder mobility for pain involvement. Start Cervical stab strengthening. End: Modalities (MH, CP, ESTIM) next: try pads at neck> UT, manual therapy (Traction, JMT, STM) to decrease ms guarding. Ther Ex: Improve cervical extension, and rotation (L>R) ROM. Pt education in best sleeping positions and body mechanics training for proper head/neck posturing.
--- NOTE | 2022-12-28 15:56 | PT.OTN ---
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 PT-OP-B Current Condition Start: 12/04/22 18:45 Freq: Status: Active Protocol: Document 12/08/22 11:21 LRN (Rec: 12/08/22 12:13 LRN [id number]) Current Condition History of Current Condition Onset Date 1.5 months ago. Current Complaints Pelon neck pain, can't rot or extend neck w/o sudden sharp pain,constant ache History of Current Condition Woke one day with neck pain that is variable in intensity. In mornings on day off it hurts more. Using gel ice pack helps. Was also better with ms relaxors and anti- inflammatories. Has achy muscles and sharp pain with rot and ext. 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 Prior Treatments and Tests Anti-inflammatories, muscle relaxors. Treatment Goals Patient/Caregiver Goals Pt goal: alleviate the sharp neck pain, to be able to turn neck all the way to drive. be able to play with grandkids , be able to get comfortable at nighttime, and no pain in morning except for achy neck muscles (currently wakes with pain rated 1-7/10). 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 Watches [employer] 2:30-5 :30 or 6p. Baseline Function- Other No back pain. Lives with 11 yo son and takes care of grandkids (ages 5,6,7, 2-boys and 1 girl) 2x/week. 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 PT-OP-C Subjective Start: 12/04/22 18:45 Freq: Status: Active Protocol: Document 12/28/22 14:53 LRN (Rec: 12/28/22 15:55 LRN [id number]) OP-PT Subjective Patient Comments Patient Comments Pain is 2/10 on R side of neck with neck SB. Pain with stretch. PT-OP-H Neuro Start: 12/04/22 18:45 Freq: Status: Active Protocol: Document 12/08/22 11:21 LRN (Rec: 12/08/22 12:13 LRN [id number]) Sensation Evaluation Gross Sensation Gross Sensation WNL Deep Tendon Reflex & Clonus Assessment Deep Tendon Reflex Right Tricep Deep Tendon Reflex 1+ Diminished Left Tricep Deep Tendon Reflex 2+ Normal Right Bicep Deep Tendon Reflex 1+ Diminished Left Bicep Deep Tendon Reflex 2+ Normal Bilateral Brachioradialis Deep Tendon Reflex 2+ Normal PT-OP-J Posture/Palpation/Skin Start: 12/04/22 18:45 Freq: Status: Active Protocol: Document 12/08/22 11:21 LRN (Rec: 12/08/22 12:13 LRN [id number]) Posture Evaluation Position Standing Head/C-Spine Posture Side Bent Left,C-Spine Flattened,Forward Head L-Spine Posture Increased Lordosis Shoulder Posture (L) Elevated Arm Posture (L) Internally Rotated,(R) Internally Rotated Pelvis Posture Anteriorly Tilted Ankle/Foot Posture (L) Pronated,(R) Pronated Comments Posture Comments Straightened upper T/S, dowagers hump Palpation Assessment Location C/S Palpation Location C/S Palpation Findings Tenderness Palpation Details Decreased PA of C/S. Posterior neck Palpation Location L Paraspinals & UT Palpation Findings Soft Tissue Tightness,Muscle Guarding,Tenderness PT-OP-K Range of Motion Start: 12/04/22 18:45 Freq: Status: Active Protocol: Document 12/08/22 11:21 LRN (Rec: 12/08/22 12:13 LRN [id number]) Cervical Spine Range of Motion Cervical Spine Active Degrees Testing Position Sitting Flexion 38 Extension 24 Rotation Left 30 Rotation Right 42 Lateral Flexion Left 23 Lateral Flexion Right 23 ROM Limitations Pain Comments Pain at base of skull PT-OP-L Special Tests Start: 12/04/22 18:45 Freq: Status: Active Protocol: Document 12/08/22 11:21 LRN (Rec: 12/08/22 12:13 LRN [id number]) Special Tests Cervical Spine Special Tests Vertebral Artery Test Results - R rot, not able to tolerate positioning for testing of L side. Spurling's Test Test Results + Comments L sided neck pain Traction Test Results + Comments Relieved tension Foraminal Compression Test Results + Comments Increased pain at base of head PT-OP-M Strength Start: 12/04/22 18:45 Freq: Status: Active Protocol: Document 12/08/22 11:21 LRN (Rec: 12/08/22 12:13 LRN [id number]) Cervical Spine Strength Cervical Spine Manual Muscle Testing Testing Position Sitting Flexion (C1-2) 4 Good Extension 5 Normal Rotation Left 5 Normal Rotation Right 5 Normal Lateral Flexion Left (C3) 3+ Fair+ Lateral Flexion Right (C3) 5 Normal Comments Pain with Flex and L SB Dec pain with Ext PT-OP-Q Treatments Start: 12/04/22 18:45 Freq: Status: Active Protocol: Document 12/28/22 14:53 LRN (Rec: 12/28/22 15:55 LRN [id number]) Therapeutic Exercises Supine Exercises Active cervical rotation Supine Exercise Name Active Cervical Rot stretch Side bilateral Reps/Minutes 6' Comments ROM taken. Pt learnining limits of rot stretch Sitting Exercises Shoulder IR stretch Sitting Exercise Name Shoulder IR stretch ( occasional with L) Side right Reps/Minutes 8' Neck stretches Sitting Exercise Name SB Reps/Minutes 5' Standing Exercises wall posture Standing Exercise Name Wall posture stance - HEP Equipment Used wall Reps/Minutes 6' Comments good carryover off wall Self-Care/Home Management Treatment Education Patient Education Home Exercise Program Other Education Reviewed proper nighttime sleeping (head/neck midline of body midline). Pt education and discussion of proper sitting/standing posture. Pt education and discussion of proper body mechanics for ADLs. Activities Self-Care/Home Management Activities Issued & Reviewed HEP: shoulder IR towel stretch. Handouts issued for proper posture in sit/stand and proper mechanics for ADLs. PT-OP-R Modalities Start: 12/04/22 18:45 Freq: Status: Active Protocol: Document 12/28/22 14:53 LRN (Rec: 12/28/22 15:55 LRN [id number]) Electric Stimulation Electric Stimulation Interferential Current (IFC) Body Location Neck/midback Duration (Minutes) 15 Intensity 12 Target/Sweep Sweep Patient Position Hooklying Combined With Heat/Cold Hot Pack PT-OP-T Assessment and Plan Start: 12/04/22 18:45 Freq: Status: Active Protocol: Document 12/28/22 14:53 LRN (Rec: 12/28/22 15:55 LRN [id number]) Physical Therapy Assessment Goals Two Impairment Neck pain limiting function Impairment Decrease driving and sleeping ability. Pain first in morning (pain rated 1-7/10). NDI score 14/50 (20-39% impaired, score 10-19), UE Quickdash 18 (1-19% impaired, score 1-19). Short Term Goal (STG) Alleviate the sharp neck pain, to drive to turn neck all the way. 12/14/22: Discussed daily head positioning to avoid flexion. 12/28/22: Pt has sharp pain if rotating head too fast, but she is able to drive without the sharp pain. STG Duration 01/17/23 (12/28/22: MET GOAL) Junior Net Developer Goal (LTG) Be able to get comfortable at nighttime, no pain first in morning except for achy neck muscles (wakes with pain rated 1-7/10). Be able to play with grandkids. 12/28/22: Comfortable at nighttime. Pain first in morning. LTG Duration 03/08/23 progressing 12/28/22 (pain waking, playing w/ grandkids) One Impairment Lacks HEP Short Term Goal (STG) Pt will be educated in proper posture, nighttime positioning and body mechanics. STG Duration 01/17/23 (12/28/22: MET GOAL ) Junior Net Developer Goal (LTG) Pt will be independent in a self [facility] ex program of cervical mobility and strengthening exercises. 12/11/22: HEP: Cervical ext, SB, rot stretches. 12/14/22: 12/11/22 HEP review; HEP: supine Chin tuck, standing shoulder IR towel stretch 12/21/22: Wall posture and supine chin tucks HO given for HEP. LTG Duration 03/08/23 progressed 12/11/22 Progress Towards Goals Progress Comments STG #1 & #2 MET. LTG #2 Progressing. Assessment Summary Assessment Wall posture demonstrates good posture except trunk is in extension and head is R rotated. Pt lacks active cervical R rot ~10 deg's. Physical Therapy Plan Frequency and Duration Frequency of Treatment 2x/Week Plan of Care Start Date 12/08/22 Plan of Care End Date 03/08/23 Next Visit Focus/Plan Next Note Type Treatment Note Next Visit Plan Assess Upper limb tension and assess shoulder mobility for pain involvement. Start Cervical stab strengthening. End: Modalities (MH, CP, ESTIM) next: assess pads at neck>UT vs neck/UB for best pain relief, manual therapy ( Traction, JMT, STM) to decrease ms guarding. Ther Ex: Improve cervical extension, and rotation (L>R) ROM.
--- NOTE | 2023-01-01 15:19 | PT.OTN ---
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 PT-OP-B Current Condition Start: 12/04/22 18:45 Freq: Status: Active Protocol: Document 12/08/22 11:21 LRN (Rec: 12/08/22 12:13 LRN [id number]) Current Condition History of Current Condition Onset Date 1.5 months ago. Current Complaints Pelon neck pain, can't rot or extend neck w/o sudden sharp pain,constant ache History of Current Condition Woke one day with neck pain that is variable in intensity. In mornings on day off it hurts more. Using gel ice pack helps. Was also better with ms relaxors and anti- inflammatories. Has achy muscles and sharp pain with rot and ext. 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 Prior Treatments and Tests Anti-inflammatories, muscle relaxors. Treatment Goals Patient/Caregiver Goals Pt goal: alleviate the sharp neck pain, to be able to turn neck all the way to drive. be able to play with grandkids , be able to get comfortable at nighttime, and no pain in morning except for achy neck muscles (currently wakes with pain rated 1-7/10). 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 Watches [employer] 2:30-5 :30 or 6p. Baseline Function- Other No back pain. Lives with 11 yo son and takes care of grandkids (ages 5,6,7, 2-boys and 1 girl) 2x/week. 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 PT-OP-C Subjective Start: 12/04/22 18:45 Freq: Status: Active Protocol: Document 01/01/23 14:13 NBM (Rec: 01/01/23 15:17 NBM [id number]) OP-PT Subjective Patient Comments Patient Comments Mirta reports she felt no pain at all today, even when she woke up. She is doing ex's and is mindful of breathholding throughout the day. PT-OP-H Neuro Start: 12/04/22 18:45 Freq: Status: Active Protocol: Document 12/08/22 11:21 LRN (Rec: 12/08/22 12:13 LRN [id number]) Sensation Evaluation Gross Sensation Gross Sensation WNL Deep Tendon Reflex & Clonus Assessment Deep Tendon Reflex Right Tricep Deep Tendon Reflex 1+ Diminished Left Tricep Deep Tendon Reflex 2+ Normal Right Bicep Deep Tendon Reflex 1+ Diminished Left Bicep Deep Tendon Reflex 2+ Normal Bilateral Brachioradialis Deep Tendon Reflex 2+ Normal PT-OP-J Posture/Palpation/Skin Start: 12/04/22 18:45 Freq: Status: Active Protocol: Document 12/08/22 11:21 LRN (Rec: 12/08/22 12:13 LRN [id number]) Posture Evaluation Position Standing Head/C-Spine Posture Side Bent Left,C-Spine Flattened,Forward Head L-Spine Posture Increased Lordosis Shoulder Posture (L) Elevated Arm Posture (L) Internally Rotated,(R) Internally Rotated Pelvis Posture Anteriorly Tilted Ankle/Foot Posture (L) Pronated,(R) Pronated Comments Posture Comments Straightened upper T/S, dowagers hump Palpation Assessment Location C/S Palpation Location C/S Palpation Findings Tenderness Palpation Details Decreased PA of C/S. Posterior neck Palpation Location L Paraspinals & UT Palpation Findings Soft Tissue Tightness,Muscle Guarding,Tenderness PT-OP-K Range of Motion Start: 12/04/22 18:45 Freq: Status: Active Protocol: Document 12/08/22 11:21 LRN (Rec: 12/08/22 12:13 LRN [id number]) Cervical Spine Range of Motion Cervical Spine Active Degrees Testing Position Sitting Flexion 38 Extension 24 Rotation Left 30 Rotation Right 42 Lateral Flexion Left 23 Lateral Flexion Right 23 ROM Limitations Pain Comments Pain at base of skull PT-OP-L Special Tests Start: 12/04/22 18:45 Freq: Status: Active Protocol: Document 12/08/22 11:21 LRN (Rec: 12/08/22 12:13 LRN [id number]) Special Tests Cervical Spine Special Tests Vertebral Artery Test Results - R rot, not able to tolerate positioning for testing of L side. Spurling's Test Test Results + Comments L sided neck pain Traction Test Results + Comments Relieved tension Foraminal Compression Test Results + Comments Increased pain at base of head PT-OP-M Strength Start: 12/04/22 18:45 Freq: Status: Active Protocol: Document 12/08/22 11:21 LRN (Rec: 12/08/22 12:13 LRN [id number]) Cervical Spine Strength Cervical Spine Manual Muscle Testing Testing Position Sitting Flexion (C1-2) 4 Good Extension 5 Normal Rotation Left 5 Normal Rotation Right 5 Normal Lateral Flexion Left (C3) 3+ Fair+ Lateral Flexion Right (C3) 5 Normal Comments Pain with Flex and L SB Dec pain with Ext PT-OP-Q Treatments Start: 12/04/22 18:45 Freq: Status: Active Protocol: Document 01/01/23 14:13 NBM (Rec: 01/01/23 15:17 NBM [id number]) Therapeutic Exercises Supine Exercises Active cervical rotation Supine Exercise Name Active Cervical Rot stretch Side bilateral Reps/Minutes 6' Comments R-side Pain w/ R rotation to end-range, cues for pain-free range Sitting Exercises Shoulder IR stretch Sitting Exercise Name Shoulder IR stretch ( occasional with L) Side right Reps/Minutes 4' Comments cues for set up, cervical alignment Levator scap stretch Side bilateral Reps/Minutes 2 x30s ea Neck stretches Sitting Exercise Name Ext (hands behind neck), SB, Rot Side bilateral Reps/Minutes 3 SH x 10 for ext, 5 SH x 10 for SB/Rot Comments vc to sit on shoulder, keep nose ahead for SB Standing Exercises Cervical stabilization Standing Exercise Name w/ shoulder flex/scap/abd Side bilateral Equipment Used wall, yellow ball behind head Reps/Minutes x10 Comments added to HEP wall posture Standing Exercise Name Wall posture stance - HEP Equipment Used wall Reps/Minutes 6' Comments good carryover off wall Manual Therapy Treatment Soft Tissue Mobilization cervical Body Location R>L Scalenes, R SCM, Pelon LS, UT Mobilization Type Rolling,Strumming,Sustained Pressure Intensity/Depth Moderate Body Position Hooklying Comments Manual cervical trx - 3 x 90s Manual pin and stretch to LS bilaterally Self-Care/Home Management Treatment Education Patient Education Home Exercise Program Other Education Review of proper sitting/ standing posture and proper body mechanics for ADLs and sleep positioning. PT-OP-R Modalities Start: 12/04/22 18:45 Freq: Status: Active Protocol: Document 01/01/23 14:13 NBM (Rec: 01/01/23 15:17 [facility] [id number]) Electric Stimulation Electric Stimulation Interferential Current (IFC) Body Location Neck/midback Duration (Minutes) 15 Intensity 10 Target/Sweep Sweep Patient Position Hooklying Combined With Heat/Cold Hot Pack PT-OP-T Assessment and Plan Start: 12/04/22 18:45 Freq: Status: Active Protocol: Document 01/01/23 14:13 NBM (Rec: 01/01/23 15:17 [facility] [id number]) Physical Therapy Assessment Impairments Impairments Activity Tolerance,Pain, Posture,ROM,Soft Tissue Mobility,Strength Goals Two Impairment Neck pain limiting function Impairment Decrease driving and sleeping ability. Pain first in morning (pain rated 1-7/10). NDI score 14/50 (20-39% impaired, score 10-19), UE Quickdash 18 (1-19% impaired, score 1-19). Short Term Goal (STG) Alleviate the sharp neck pain, to drive to turn neck all the way. 12/14/22: Discussed daily head positioning to avoid flexion. 12/28/22: Pt has sharp pain if rotating head too fast, but she is able to drive without the sharp pain. STG Duration 01/17/23 (12/28/22: MET GOAL) Bulk Pallet Builder Goal (LTG) Be able to get comfortable at nighttime, no pain first in morning except for achy neck muscles (wakes with pain rated 1-7/10). Be able to play with grandkids. 12/28/22: Comfortable at nighttime. Pain first in morning. 01/01/23: Pt awoke today without pain and reports no pain throughout the day. They are still hesitant to play with grandkids. LTG Duration 03/08/23 progressing 01/04/23 (pain waking, playing w/ grandkids) One Impairment Lacks HEP Short Term Goal (STG) Pt will be educated in proper posture, nighttime positioning and body mechanics. STG Duration 01/17/23 (12/28/22: MET GOAL ) Alf Goal (LTG) Pt will be independent in a self senior care ex program of cervical mobility and strengthening exercises. 12/11/22: HEP: Cervical ext, SB, rot stretches. 12/14/22: 12/11/22 HEP review; HEP: supine Chin tuck, standing shoulder IR towel stretch 12/21/22: Wall posture and supine chin tucks HO given for HEP. 01/04/23: Cervical stabilization at wall w/ shoulder flex/scap/abd LTG Duration 03/08/23 progressed 12/11/22 Assessment Summary Assessment Pt continues to progress with decreased pain and improved pain-free cervical range of motion, and improving self- awareness of limits of cervical rotation stretch. Today she meets part of LTG #2 to awake without pain, and remains pain-free throughout the day, but she is still hesitant to play with grandkids. Brief review w/ pt of proper sitting/standing posture and proper body mechanics for ADLs and sleep positioning. Added to HEP: cervical stabilization at wall with ball w/ shoulder flex/ scap/abd - HO louisa. Discussed okay to add these ex's on alternating days for time management. Physical Therapy Plan Frequency and Duration Frequency of Treatment 2x/Week Plan of Care Start Date 12/08/22 Plan of Care End Date 03/08/23 Therapeutic Interventions Therapeutic Interventions Home Exercise Program,Joint Mobilizations,Manual Therapy, Neuromuscular Re-education, Patient/Caregiver Education, Self-Care/Home Management,Soft Tissue Mobilization,Taping, Therapeutic Activities, Therapeutic Exercises Modalities Cold Pack/Ice Massage,Electric Stimulation,Hot Packs, Traction- Mechanical, Ultrasound Next Visit Focus/Plan Next Note Type Treatment Note Next Visit Plan Assess Upper limb tension and assess shoulder mobility for pain involvement. Start Consider resisted crista ex's w/ focus on posture; UBE. POC: Cervical stab strengthening. End: Modalities (MH, CP, ESTIM) next: assess pads at neck>UT vs neck/UB for best pain relief, manual therapy ( Traction, JMT, STM) to decrease ms guarding. Ther Ex: Improve cervical extension, and rotation (L>R) ROM.
--- NOTE | 2023-03-01 17:09 | PT.OPDS ---
Current Diagnoses Cervicalgia (01/12/23) Visit Care Team Role Provider Type Santos Chapin MD Attending Provider Physician Family Provider Primary Care Provider Referring Provider Specialty: Family Practice Address: [address] [place] [address], [facility], [place], [place], [facility] Email: [email or web address] Visit Number Visit Number 12/12 Discharge Summary PT-OP-B Current Condition Start: 12/04/22 18:45 Freq: Status: Active Protocol: Document 12/08/22 11:21 LRN (Rec: 12/08/22 12:13 LRN [id number]) Current Condition History of Current Condition Onset Date 1.5 months ago. Current Complaints Pelon neck pain, can't rot or extend neck w/o sudden sharp pain,constant ache History of Current Condition Woke one day with neck pain that is variable in intensity. In mornings on day off it hurts more. Using gel ice pack helps. Was also better with ms relaxors and anti- inflammatories. Has achy muscles and sharp pain with rot and ext. 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 Prior Treatments and Tests Anti-inflammatories, muscle relaxors. Treatment Goals Patient/Caregiver Goals Pt goal: alleviate the sharp neck pain, to be able to turn neck all the way to drive. be able to play with grandkids , be able to get comfortable at nighttime, and no pain in morning except for achy neck muscles (currently wakes with pain rated 1-7/10). 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 Baseline Function- Other No back pain. Lives with 11 yo son and takes care of grandkids (ages 5,6,7, 2-boys and 1 girl) 2x/week. 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 PT-OP-C Subjective Start: 06/16/23 18:45 Freq: Status: Active Protocol: Document 01/01/23 14:13 NBM (Rec: 01/01/23 15:17 NBM [id number]) OP-PT Subjective Patient Comments Patient Comments Mirta reports she felt no pain at all today, even when she woke up. She is doing ex's and is mindful of breathholding throughout the day. PT-OP-H Neuro Start: 12/04/22 18:45 Freq: Status: Active Protocol: Document 12/08/22 11:21 LRN (Rec: 12/08/22 12:13 LRN [id number]) Sensation Evaluation Gross Sensation Gross Sensation WNL Deep Tendon Reflex & Clonus Assessment Deep Tendon Reflex Right Tricep Deep Tendon Reflex 1+ Diminished Left Tricep Deep Tendon Reflex 2+ Normal Right Bicep Deep Tendon Reflex 1+ Diminished Left Bicep Deep Tendon Reflex 2+ Normal Bilateral Brachioradialis Deep Tendon Reflex 2+ Normal PT-OP-J Posture/Palpation/Skin Start: 12/04/22 18:45 Freq: Status: Active Protocol: Document 12/08/22 11:21 LRN (Rec: 12/08/22 12:13 LRN [id number]) Posture Evaluation Position Standing Head/C-Spine Posture Side Bent Left,C-Spine Flattened,Forward Head L-Spine Posture Increased Lordosis Shoulder Posture (L) Elevated Arm Posture (L) Internally Rotated,(R) Internally Rotated Pelvis Posture Anteriorly Tilted Ankle/Foot Posture (L) Pronated,(R) Pronated Comments Posture Comments Straightened upper T/S, dowagers hump Palpation Assessment Location C/S Palpation Location C/S Palpation Findings Tenderness Palpation Details Decreased PA of C/S. Posterior neck Palpation Location L Paraspinals & UT Palpation Findings Soft Tissue Tightness,Muscle Guarding,Tenderness PT-OP-K Range of Motion Start: 12/04/22 18:45 Freq: Status: Active Protocol: Document 12/08/22 11:21 LRN (Rec: 12/08/22 12:13 LRN [id number]) Cervical Spine Range of Motion Cervical Spine Active Degrees Testing Position Sitting Flexion 38 Extension 24 Rotation Left 30 Rotation Right 42 Lateral Flexion Left 23 Lateral Flexion Right 23 ROM Limitations Pain Comments Pain at base of skull PT-OP-L Special Tests Start: 12/04/22 18:45 Freq: Status: Active Protocol: Document 12/08/22 11:21 LRN (Rec: 12/08/22 12:13 LRN [id number]) Special Tests Cervical Spine Special Tests Vertebral Artery Test Results - R rot, not able to tolerate positioning for testing of L side. Spurling's Test Test Results + Comments L sided neck pain Traction Test Results + Comments Relieved tension Foraminal Compression Test Results + Comments Increased pain at base of head PT-OP-M Strength Start: 12/04/22 18:45 Freq: Status: Active Protocol: Document 12/08/22 11:21 LRN (Rec: 12/08/22 12:13 LRN [id number]) Cervical Spine Strength Cervical Spine Manual Muscle Testing Testing Position Sitting Flexion (C1-2) 4 Good Extension 5 Normal Rotation Left 5 Normal Rotation Right 5 Normal Lateral Flexion Left (C3) 3+ Fair+ Lateral Flexion Right (C3) 5 Normal Comments Pain with Flex and L SB Dec pain with Ext PT-OP-T Assessment and Plan Start: 12/04/22 18:45 Freq: Status: Active Protocol: Document 03/01/23 17:05 LRN (Rec: 03/01/23 17:09 LRN [id number]) Physical Therapy Assessment Goals Two Impairment Neck pain limiting function Impairment Decrease driving and sleeping ability. Pain first in morning (pain rated 1-7/10). NDI score 14/50 (20-39% impaired, score 10-19), UE Quickdash 18 (1-19% impaired, score 1-19). Short Term Goal (STG) Alleviate the sharp neck pain, to drive to turn neck all the way. 12/14/22: Discussed daily head positioning to avoid flexion. 12/28/22: Pt has sharp pain if rotating head too fast, but she is able to drive without the sharp pain. STG Duration 01/17/23 (12/28/22: MET GOAL) Database Admin Goal (LTG) Be able to get comfortable at nighttime, no pain first in morning except for achy neck muscles (wakes with pain rated 1-7/10). Be able to play with grandkids. 12/28/22: Comfortable at nighttime. Pain first in morning. 01/01/23: Pt awoke today without pain and reports no pain throughout the day. They are still hesitant to play with grandkids. LTG Duration 03/08/23 progressing 01/04/23 (pain waking, playing w/ grandkids) One Impairment Lacks HEP Short Term Goal (STG) Pt will be educated in proper posture, nighttime positioning and body mechanics. STG Duration 01/17/23 (12/28/22: MET GOAL ) Database Admin Goal (LTG) Pt will be independent in a self shelter ex program of cervical mobility and strengthening exercises. 12/11/22: HEP: Cervical ext, SB, rot stretches. 12/14/22: 12/11/22 HEP review; HEP: supine Chin tuck, standing shoulder IR towel stretch 12/21/22: Wall posture and supine chin tucks HO given for HEP. 01/04/23: Cervical stabilization at wall w/ shoulder flex/scap/abd LTG Duration 03/08/23 progressed 12/11/22 Assessment Summary Assessment Pt was last seen 01/01/23. She had called to leave message on 02/01/23 that her insurance was not active; therefore would not schedule more visits . The pt made some progress with being able to drive and rotate head if not moving too fast without pain. She was started on a HEP. All goals were not met due to pt choice to early discharge from physical therapy. Physical Therapy Plan Discharge Physical Therapy Discharge Reasons Patient Request Discharge Comments Thank you for your referral.
== END 2023-03-03 10:03 ==
LOC: PHYS 14:15
PROVIDERS: Family Provider Family Medicine; PCP Family Medicine; Referring Provider Family Medicine; Visit Provider Family Medicine
DX: M54.2 Cervicalgia (principal)
CPT/HCPCS: 97014; 97110; 97140; 97162; 97535; G0283

== ENCOUNTER → 2024-05-10 07:50 | Outpatient (CLI) | payer OTHER, SELFPAY ==
--- NOTE | 2024-05-10 07:51 | DI.MG.S_ITS ---
BILATERAL DIGITAL SCREENING MAMMOGRAM 3D/2D WITH CAD: 05/10/2024 CLINICAL: Routine screening. Comparison is made to exam dated: 11/15/2015 mammogram - [facility]. There are scattered areas of fibroglandular density (category b / 25%-50% glandular tissue). Current study was also evaluated with a Computer Aided Detection (CAD) system. No significant masses, calcifications, or other findings are seen in either breast. There has been no significant interval change. IMPRESSION: NEGATIVE There is no mammographic evidence of malignancy. A 1 year screening mammogram is recommended. Based on the Tyrer Cuzick model (a risk assessment model) the patient's lifetime risk is 6.1% and her 10 year risk is 1.3%. According to the ACR, ACS, and NCCN guidelines, an annual breast MRI exam along with mammogram is recommended if the patient's lifetime risk is 20% or greater. This exam was interpreted at Station ID: [id number]. NOTE: For mammograms, a report in lay terms will be sent to the patient. Approximately 15% of breast malignancies will not be visualized mammographically. In the management of a palpable breast mass, a negative mammogram must not discourage biopsy of a clinically suspicious lesion. Electronically Signed By: Brenda Gonzalez M.D., Ph.D. nga/phillip:05/11/2024 22:15:53 copy to: Santos Chapin letter sent: Normal Exam ACR BI-RADS Category 1: Negative
== END ==
PROVIDERS: Family Provider Family Medicine; PCP Family Medicine; Referring Provider Family Medicine; Visit Provider Family Medicine
DX: Z12.31 Encounter for screening mammogram for malignant neoplasm of breast (principal)
CPT/HCPCS: 77063; 77067

== ENCOUNTER 2024-06-03 16:21 | Emergency (ER) | payer OTHER, SELFPAY ==
[2024-06-03 16:24] VITALS: BP 125/71; PULSE 97; RESP 17; TEMP 36.1; O2SAT 100; BMI 30.5
--- NOTE | 2024-06-03 16:27 | DI.RAD.S_ITS ---
PROCEDURE: XR ANKLE RT MIN 3V INDICATIONS: rolled ankle, swelling, pain TECHNIQUE: 3 views of the ankle were acquired. COMPARISON: None. FINDINGS: Bones: No fractures or dislocations. Ankle mortise is normally aligned. No suspicious bony lesions. Soft tissues: No tibiotalar joint effusion. Achilles tendon appears normal. IMPRESSION: No acute bony abnormality or significant effusion. Dictated by: Vanessa Vasquez M.D. on 06/03/2024 at 15:54 Approved by: Vanessa Vasquez M.D. on 06/03/2024 at 15:56
--- NOTE | 2024-06-03 17:23 | ED_ITS ---
HPI - Extremity Injury (Lower) <Camelia Soto PA-C - Last Filed: 06/03/24 20:18> General Chief Complaint: Extremity Injury, Lower Stated Complaint: rt ankle injury Time Seen by Provider: 06/03/24 17:22 Mode of arrival: Wheelchair History of Present Illness HPI Narrative: 48-year-old woman presents with concern for right ankle pain, rolled her right ankle today when she was wearing winter boots and accidentally stepped wrong. She states she has pretty much not been putting weight on it since it happened because it is too painful. Most of her pain is towards the back of her ankle and the outside of her ankle where she also has swelling. She does not believe she has previously fractured or injured this foot or ankle or had surgery on it. She denies numbness or tingling of the affected extremity. 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 She has not taken anything yet for the pain. She denies any other injuries complaints or concerns. Related Data Home Medications Medication Instructions Recorded Confirmed [ CONTROL PILLS] ##0 01/07/17 12/17/19 geuzwbx-ftgwijlfqtrsa-owrtdhbz 250 1 tab PO ##0 04/08/17 12/17/19 mg-250 mg-65 mg tablet (Excedrin Migraine) venlafaxine [Effexor XR] PO 06/10/19 12/17/19 Allergies Allergy/AdvReac Type Severity Reaction Status Date / Time Penicillins [PENICILLINS] Allergy Unknown Swelling Verified 06/03/24 16:24 of Lip/Tongue/Throat Review of Systems <Camelia Soto PA-C - Last Filed: 06/03/24 20:18> Review of Systems Narrative: See HPI Patient History <Camelia Soto PA-C - Last Filed: 06/03/24 20:18> Social History Smoking Status: Former smoker Smoking Status: Former smoker Exam <Camelia Soto PA-C - Last Filed: 06/03/24 20:18> Narrative Exam Narrative: GENERAL: [48] year old patient appears stated age. Well-developed patient, in mild distress. HEAD: Atraumatic. Normocephalic. EYES: Pupils equal round and reactive. Extraocular motions intact. No scleral icterus. No injection or drainage. ENT: Nose without bleeding, purulent drainage. Airway patent. NECK: Trachea midline. CARDIOVASCULAR: Regular rate and rhythm RESPIRATORY: No increased work of breathing or respiratory distress EXTREMITIES: There is pronounced swelling/with bruising forming about the lateral malleolus of the right ankle. There is tenderness over the ATFL but most pronounced over the ATFL and calcaneofibular ligament. Mild tenderness over the dorsum of the foot proximally. Reduced range of motion at the ankle 2nd to pain. Cap refill is less than 2 seconds, dorsalis pedis pulse strong 2+. There is no tenderness of the proximal fibula or tibia. No edema or joint tenderness. NEURO: AOx3. SKIN: No rash or erythema of visible areas Initial Vital Signs Initial Vital Signs: Vital Signs Temperature 97 F L 06/03/24 16:24 Pulse Rate 97 H 06/03/24 16:24 Respiratory Rate 17 06/03/24 16:24 Blood Pressure 125/71 06/03/24 16:24 Pulse Oximetry 100 06/03/24 16:24 Oxygen Delivery Method Room Air 06/03/24 16:24 <Ismael Vu DO - Last Filed: 06/03/24 20:43> Initial Vital Signs Initial Vital Signs: Vital Signs Temperature 97 F L 06/03/24 16:24 Pulse Rate 97 H 06/03/24 16:24 Respiratory Rate 17 06/03/24 16:24 Blood Pressure 125/71 06/03/24 16:24 Pulse Oximetry 100 06/03/24 16:24 Oxygen Delivery Method Room Air 06/03/24 16:24 Course <Camelia Soto PA-C - Last Filed: 06/03/24 20:18> Orders Ordered: ED Orders 06/03/24 16:27 XR ankle RT min 3V Stat Discontinued Medications Acetaminophen (Acetaminophen 325 Mg Tablet) 650 mg PO NOW ONE Stop: 06/03/24 18:35 Last Admin: 06/03/24 18:52 Dose: 650 mg Documented By: SB Ibuprofen (Ibuprofen 400 Mg Tablet) 400 mg PO NOW ONE Stop: 06/03/24 18:35 Last Admin: 06/03/24 18:52 Dose: 400 mg Documented By: SB Vital Signs Vital signs: Vital Signs - 8 hr 06/03/24 16:24 06/03/24 19:00 Temperature 97 F L Pulse Rate 97 H 76 Respiratory Rate 17 16 Blood Pressure 125/71 117/70 Pulse Oximetry 100 99 Oxygen Delivery Method Room Air Room Air <Ismael Vu DO - Last Filed: 06/03/24 20:43> Orders Ordered: ED Orders 06/03/24 16:27 XR ankle RT min 3V Stat Discontinued Medications Acetaminophen (Acetaminophen 325 Mg Tablet) 650 mg PO NOW ONE Stop: 06/03/24 18:35 Last Admin: 06/03/24 18:52 Dose: 650 mg Documented By: NAS Ibuprofen (Ibuprofen 400 Mg Tablet) 400 mg PO NOW ONE Stop: 06/03/24 18:35 Last Admin: 06/03/24 18:52 Dose: 400 mg Documented By: NAS Vital Signs Vital signs: Vital Signs - 8 hr 06/03/24 16:24 06/03/24 19:00 Temperature 97 F L Pulse Rate 97 H 76 Respiratory Rate 17 16 Blood Pressure 125/71 117/70 Pulse Oximetry 100 99 Oxygen Delivery Method Room Air Room Air MDM - Extremity Injury (Lower) <Camelia Soto PA-C - Last Filed: 06/03/24 20:18> Differential Diagnosis Differential diagnosis: Likely ankle sprain and strain and ankle fracture Medical Records Attestation: I reviewed the patient's medical records. Imaging Data Extremity x-ray #1: My Impression: Agree with Radiology interpretation Radiologist's Impression: [address] [address] XRay Report Signed Patient: Mirta Briscoe MR#: [id number] : 1975 Acct:[id number] Age/Sex: 48 / F Date of Service: 06/03/24 Loc: ED Accession Number: [id number] Procedure: XR ankle RT min 3V Ordering Provider: Sofy Fletcher D.O. PROCEDURE: XR ANKLE RT MIN 3V INDICATIONS: rolled ankle, swelling, pain TECHNIQUE: 3 views of the ankle were acquired. COMPARISON: None. FINDINGS: Bones: No fractures or dislocations. Ankle mortise is normally aligned. No suspicious bony lesions. Soft tissues: No tibiotalar joint effusion. Achilles tendon appears normal. IMPRESSION: No acute bony abnormality or significant effusion. Dictated by: Vanessa Vasquez M.D. on 06/03/2024 at 15:54 Approved by: Vanessa Vasquez M.D. on 06/03/2024 at 15:56 [facility] Narrative Medical decision making narrative: This is a 48-year-old woman presenting with concern for right ankle pain and swelling after she rolled her ankle prior to arrival. X-rays show no evidence of fracture. Exam is consistent with a sprain. Patient was agreeable to being placed in a orthopedic boot and provided with crutches from the emergency department. She was advised to be nonweightbearing for at least 7-10 days possibly up to 3 weeks depending on how she is progressing. Follow up closely with PCP, Tylenol and ibuprofen for pain, use rest ice compression elevation. Return precautions provided, follow-up plan discussed all questions answered. Discharge Plan Departure Patient Disposition: Home Clinical Impression: Sprain of ankle, right Qualifiers: Encounter type: initial encounter Involved ligament of ankle: posterior talofibular ligament Qualified Code(s): S93.491A - Sprain of other ligament of right ankle, initial encounter Activity Restrictions/Additional Instructions: *You have been diagnosed with 48 *What to do: *Please continue to take your regular medications as directed. [ ] New medication prescriptions sent to your pharmacy: [ ] [ ] New medication written as a paper prescription [ ] No new medications given *Please follow up with your primary care provider in 2-3 days, call for an appointment. Let them know you were seen in the Emergency Department and that we ask that you be seen in follow up. We will electronically transmit a record of today's note if your PCP is in our system. Your x-rays show no evidence of fracture, we placed you in a orthopedic boot today and provided with crutches after discussion about options. I would like you to stay off of your right foot and leg as much as possible ideally for up to 3 weeks but certainly for the next 5-7 days until you start to feel more comfortable with weight-bearing. Do try to elevate your leg and use rest ice compression as well ice mostly for the 1st 24 hours and after that compression and elevation. If you do not have the boot on you can wrap it with an Varun wrap starting at the foot and traveling up your ankle. 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 You can follow up with your primary care provider. If your symptoms are not improving or certainly if they are worsening make sure you seek re-evaluation sooner. I recommend Tylenol and ibuprofen alternating for pain. *If you do not have a primary care provider please contact the [facility] Resource line at [phone]. They will ask some questions about your medical history and help get you set up with a doctor in the community. *Return to Emergency Department if you should have any new, worsening or concerning symptoms, such as [fever greater than 101 F, shaking chills, worsening pain, persistent vomiting or other bothersome symptoms] Prescriptions: No Action venlafaxine PO [ CONTROL PILLS] Qty: 0 ocqbwtl-nkdrhqmettxos-rovvkyhw [Excedrin Migraine] 1 EACH tablet 1 tab PO Qty: 0 Referrals: Santos Chapin MD [Primary Care Provider] - Stand Alone Forms: Patient Portal/API/Survey ED Sign-out <Ismael Vu DO - Last Filed: 06/03/24 20:43> Cosign ED Attending Cosignature Attestation: Dr Vu Co-Sign Statement: I was available for consultation during this patient's emergency department visit. This chart is signed by myself for administrative purposes only. I did not have direct contact with this patient during this visit. They were seen independently by the APC.
[2024-06-03] MEDS: ACETAMINOPHEN 325 MG TABLET 650 MG PO (18:52)
[2024-06-03] MEDS: IBUPROFEN 400 MG TABLET PO (18:52)
[2024-06-03 19:00] VITALS: BP 117/70; PULSE 76; RESP 16; O2SAT 99
== END 2024-06-03 19:10 | disposition home or self-care (01) ==
PROVIDERS: Emergency Provider Student in an Organized Health Care Education/Training Program; Family Provider Family Medicine; PCP Family Medicine
DX: S93.491A Sprain of other ligament of right ankle, initial encounter (principal); X50.1XXA Overexertion from prolonged static or awkward postures, initial encounter
CPT/HCPCS: 73610; 99283

== ENCOUNTER → 2024-08-10 15:15 | Outpatient (CLI) | payer OTHER, SELFPAY ==
--- NOTE | 2024-08-10 15:16 | DI.US.S_ITS ---
PROCEDURE: US PELVIC COMPLETE INDICATIONS: PELVIC PAIN,VAGINAL BLEEDING TECHNIQUE: Real-time scanning was performed of the pelvic organs, with image documentation. Additional endovaginal scanning was necessary due to incomplete visualization of the adnexal and endometrial structures by transabdominal scanning. COMPARISON: None. FINDINGS: Uterus: Uterus is anteverted and increased in size at 8.2 x 7.3 x 5.0 cm. The myometrium is homogeneous. The endometrium measures 13 mm combined thickness. Mid anterior intramural fibroid measuring 2.4 x 3.3 x 2.2 cm. Mid posterior intramural fibroid measuring 2.1 x 2.3 x 1.7 cm. Left anterior intramural fibroid measuring 2.0 x 1.4 x 1.2 cm. Arcuate uterine morphology. Ovaries: The right ovary measures 2.5 x 2.1 x 1.6 cm, with a calculated ovarian volume of 4.4 cc. The left ovary measures 2.6 x 2.2 x 1.9 cm, with a calculated ovarian volume of 5.7 cc. The ovaries have a normal sonographic appearance. Less than 12 follicles can be seen in each ovary. No adnexal masses are seen. Other: No pathologic free abdominal or pelvic fluid. IMPRESSION: Endometrium measures 13 mm which is normal for premenopausal female but considered thickened for a postmenopausal female, recommend clinical correlation and follow-up as indicated. Arcuate uterine morphology is noted. Uterine fibroids measuring up to 3.3 cm as described above. Normal appearance of the ovaries. We strive to produce accurate, complete, and clear reports of imaging services. To assist us in improving patient care, this report was composed using standard report templates and voice recognition software. Therefore, it may contain abnormal punctuation, insertions and/or omissions. Occasional wrong-word or sound-alike substitutions may occur. Though we review the report and make efforts to correct it, we do recommend that the report be read carefully in proper context to recognize any text inaccuracies. Dictated by: Smith Rice M.D. on 08/10/2024 at 16:51 Approved by: Smith Rice M.D. on 08/10/2024 at 16:53
== END ==
LOC: US 15:15
PROVIDERS: Family Provider Family Medicine; PCP Family Medicine; Referring Provider Family Medicine; Visit Provider Family Medicine
DX: N93.9 Abnormal uterine and vaginal bleeding, unspecified (principal); R10.2 Pelvic and perineal pain; D25.1 Intramural leiomyoma of uterus; Q51.810 Arcuate uterus
CPT/HCPCS: 76830; 76856

== ENCOUNTER 2024-09-06 19:27 | Emergency (ER) | payer OTHER, SELFPAY ==
[2024-09-06 19:30] VITALS: BP 152/79; PULSE 87; RESP 18; TEMP 36.3; O2SAT 100; BMI 31.1
--- NOTE | 2024-09-06 21:47 | ED_ITS ---
HPI - Eye Problem General Chief complaint: Eye Problems Stated complaint: right eye swollen Time Seen by Provider: 09/06/24 21:47 Source: patient Mode of arrival: Ambulatory History of Present Illness HPI Narrative: 48-year-old female without any significant past medical history presents to the emergency department for swelling to the right eye, she states that the eye got swollen after rubbing, she believes she may have gotten some sort of chemical in her eye, states that she did rinse and washed the eye significantly but is now still irritated painful. Patient denies any loss of vision. She states that at this time the swelling pain foreign body sensation is completely resolved. She does wear glasses at baseline no contacts. She denies any trauma falls denies any other symptoms at this time. Related Data Home Medications Medication Instructions Recorded Confirmed [ CONTROL PILLS] ##0 01/07/17 12/17/19 xanyyyu-qrbkopxfqojqm-mppopiin 250 1 tab PO ##0 04/08/17 12/17/19 mg-250 mg-65 mg tablet (Excedrin Migraine) venlafaxine [Effexor XR] PO 06/10/19 12/17/19 Previous Rx's Medication Instructions Recorded polymyxin B sulfate 10,000 1 drp EYE-RIGHT Q3H 1 week #10 mL 09/06/24 unit-trimethoprim 1 mg/mL eye drops Allergies Allergy/AdvReac Type Severity Reaction Status Date / Time Penicillins [PENICILLINS] Allergy Unknown Swelling Verified 06/03/24 16:24 of Lip/Tongue/Throat Review of Systems Review of Systems Narrative: General: Denies fever, chills, weight loss HEENT: Positive eye itchiness, foreign body sensation. Denies headache, head trauma, sore throat, voice change Cardiovascular: Denies any chest pain, palpitations, tachycardia Respiratory: Denies any shortness of breath, cough, wheeze, stridor GI/: Denies any abdominal pain, nausea, vomiting, diarrhea, bright red blood per rectum, melanotic stools, urinary frequency, urinary retention, dysuria, hematuria MSK: Denies any joint pain, muscle pains, swelling Skin: Denies any rashes, lesions, discoloration Neuro: Denies any headache, lightheadedness, dizziness, fainting, weakness Psych: Denies SI/HI Patient History Social History Smoking Status: Former smoker Smoking Status: Former smoker Exam Narrative Exam Narrative: General: Cooperative, comfortable, well-developed, not in acute distress HEENT: Normocephalic, atraumatic, PERRLA, normal sclera, extraocular eye motions are intact there is no pain with eye motion, no signs of erythema edema to the eyelids, right eye with mild injected sclera, left sclera completely normal. Negative Mansi sign, no corneal abrasions noted with fluorescein stain Neck: Active full range of motion, atraumatic Chest: Normal to inspection, negative crepitus, no overlying erythema ecchymosis Respiratory: Normal respiratory effort, not in acute respiratory distress, clear to auscultation bilaterally negative cough, wheeze, tachypnea, rhonchi, rales Cardiology: Regular rate rhythm negative gallop, murmur, rubs GI/: Normal to inspection, soft, nonrigid, no tenderness to palpation, exam deferred MSK: Full range of active range of motion of all 4 extremities, atraumatic Skin: No rashes lesions noted Neuro: Alert awake oriented x3, moves all 4 extremities spontaneously, cranial nerves intact, able to answer all questions appropriately follows commands appropriately Psych: Cooperative, negative suicidal or homicidal ideations Initial Vital Signs Initial Vital Signs: Vital Signs Temperature 97.3 F L 09/06/24 19:30 Pulse Rate 87 09/06/24 19:30 Respiratory Rate 18 09/06/24 19:30 Blood Pressure 152/79 H 09/06/24 19:30 Pulse Oximetry 100 09/06/24 19:30 Oxygen Delivery Method Room Air 09/06/24 19:30 Course Orders Ordered: Discontinued Medications Fluorescein Sodium (Fluorescein 1 Mg Strip) 1 mg EYE-BOTH NOW ONE Stop: 09/06/24 21:49 Last Admin: 09/06/24 21:55 Dose: 1 mg Documented By: JANIYA Proparacaine HCl (Proparacaine 0.5% Ophth Sarahi) 1 drops EYE-BOTH NOW ONE Stop: 09/06/24 21:49 Last Admin: 09/06/24 21:55 Dose: 1 drops Documented By: JANIYA Vital Signs Vital signs: Vital Signs - 8 hr 09/06/24 19:30 09/06/24 23:00 Temperature 97.3 F L Pulse Rate 87 72 Respiratory Rate 18 Blood Pressure 152/79 H 146/72 H Pulse Oximetry 100 98 Oxygen Delivery Method Room Air Room Air MDM - Eye Problem Differential Diagnosis Differential diagnosis: Likely corneal abrasion, conjunctivitis, periorbital cellulitis, subconjunctival hemorrhage and corneal ulcer MDM Narrative Medical decision making narrative: 48-year-old female presenting for bilateral eye irritation pain swelling she states that this happened earlier today when she believes that some sort of weird smell and chemical gas got in her eyes at her daughter's house while she was cooking. She states that she felt eye irritation immediately went to the b athroom washed her eyes but states that she feels like there is still foreign body sensation and swelling therefore came into the ED. However at time of initial evaluation patient stating that her symptoms have completely resolved but does notice a little bit of swelling to her right eye. Patient without any loss of vision. Does wear glasses at baseline. On exam patient with exam more consistent with acute chemosis, right eye with mild injected sclera but otherwise no other gross deformities. Patient will be sent home with antibiotic eyedrops as well as instructed to follow up with utilization management manager if symptoms worsen. She was given strict return precautions she verbalized understanding of this and agrees to being discharged home with outpatient follow up Discharge Plan Departure Patient Disposition: Home Clinical Impression: Chemosis of right conjunctiva Activity Restrictions/Additional Instructions: Please follow up with Optometry in an outpatient setting Please use the antibiotic drops if your symptoms get worse Please read the discharge instructions sheet carefully and bring all papers to all doctor follow-up visits, as it may contain information that your doctor may want to see. Disease processes change and evolve, if your symptoms worsen or if you develop any new symptoms that are concerning to you please return for evaluation. Your evaluation today does not show any evidence of any life- threatening/serious illnesses requiring admission to the hospital or surgery. Please follow-up with your doctor for re-evaluation in approximately 1 day. Seek immediate medical attention for any worrisome symptoms. *If you do not have a primary care provider please contact the [facility] Resource line at [phone]. They will ask some questions about your medical history and help get you set up with a doctor in the community. Prescriptions: New polymyxin B sulf-trimethoprim 10,000 unit- 1 mg/mL drops 1 drp EYE-RIGHT Q3H 7 Days Qty: 10 0RF No Action venlafaxine PO [ CONTROL PILLS] Qty: 0 zurpfxt-dajcuplyhejcy-ifrnaqzf [Excedrin Migraine] 1 EACH tablet 1 tab PO Qty: 0 Referrals: Maeve Morataya MD [Physician] - Santos Chapin MD [Primary Care Provider] - Stand Alone Forms: Patient Portal/API/Survey
[2024-09-06] MEDS: PROPARACAINE 0.5% OPHTH SOL 1 DROPS EYE-BOTH (21:55)
[2024-09-06] MEDS: FLUORESCEIN 1 MG STRIP EYE-BOTH (21:55)
[2024-09-06 23:00] VITALS: BP 146/72; PULSE 72; O2SAT 98
== END 2024-09-06 23:00 | disposition home or self-care (01) ==
PROVIDERS: Emergency Provider Student in an Organized Health Care Education/Training Program; Family Provider Family Medicine; PCP Family Medicine
DX: H11.421 Conjunctival edema, right eye (principal)
CPT/HCPCS: 99282